=== PATIENT | female | born 1965 | race American Indian/Alaskan Native ===

== ENCOUNTER 2017-01-16 10:24 | Emergency (ER) | payer SELFPAY ==
--- NOTE | 2017-01-16 13:11 | Emergency Department Report ---
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 ambulatory) - Related Data Previous Rx's Medication Instructions Recorded Last Taken Type traMADol [Ultram] 50 mg PO Q6HR PRN #10 tablet 01/16/17 Unknown Rx Allergies Allergy/AdvReac Type Severity Reaction Status Date / Time No Known Allergies Allergy Unverified 01/16/17 10:57 ED Review of Systems ROS: Stated complaint: BACK PAIN Other details as noted in HPI Comment: Unobtainable due to pts medical conditions Constitutional: no symptoms reported, see HPI. denies: chills Eyes: as per HPI. denies: eye pain ENT: as per HPI. denies: ear pain, throat pain Respiratory: no symptoms reported, see HPI. denies: cough, orthopnea Cardiovascular: as per HPI. denies: chest pain, palpitations, dyspnea on exertion, orthopnea, edema, syncope, paroxysmal nocturnal dyspnea Endocrine: no symptoms reported, see HPI. denies: intolerance to cold, intolerance to heat Gastrointestinal: as per HPI. denies: abdominal pain, nausea, vomiting Genitourinary: as per HPI. 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 denies: back pain, joint swelling Skin: as per HPI. denies: rash, lesions Neurological: as per HPI. denies: headache, weakness Psychiatric: as per HPI. denies: anxiety, depression Hematological/Lymphatic: as per HPI. denies: easy bleeding ED Past Medical Hx - Past Medical History Hx Hypertension: Yes - Surgical History Additional Surgical History: Tubal ligation, c section, hyst. - Social History Smoking Status: Never Smoker Substance Use Type: Alcohol - Medications Home Medications: Home Medications Medication Instructions Recorded Confirmed Last Taken Type traMADol [Ultram] 50 mg PO Q6HR PRN #10 tablet 01/16/17 Unknown Rx ED Physical Exam - General Limitations: No Limitations General appearance: alert, in no apparent distress - Head Head exam: Present: atraumatic - Eye Eye exam: Present: PERRL - ENT ENT exam: Present: normal exam, mucous membranes moist - Neck Neck exam: Present: normal inspection - Respiratory Respiratory exam: Present: normal lung sounds bilaterally - Cardiovascular Cardiovascular Exam: Present: regular rate - GI/Abdominal GI/Abdominal exam: Present: soft - Rectal Rectal exam: Present: deferred - Extremities Exam Extremities exam: Present: normal inspection, full ROM, normal capillary refill. Absent: tenderness, pedal edema, joint swelling - Expanded Upper Extremity Exam Right General: Present: other Shoulder Exam: Present: normal inspection. Absent: full ROM, tenderness, swelling, abrasion, laceration, ecchymosis, deformity, crepidus, dislocation, erythema, tenderness over AC joint - Back Exam Back exam: Present: normal inspection, full ROM. 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 ED Disposition Clinical Impression: Shoulder pain, Arthritis Disposition: DC-01 TO HOME OR SELFCARE Is pt being admited?: No Does the pt Need Aspirin: No Condition: Stable Instructions: Osteoarthritis (ED), Shoulder Sprain (ED) Additional Instructions: rest warm compresses follow up ortho motrin for pain- it treats the problem Prescriptions: traMADol [Ultram] 50 mg PO Q6HR PRN #10 tablet PRN Reason: Pain Referrals: PRIMARY CARE, [Primary Care Provider] - 3-5 Days KVNG BERGER MD [Staff Physician] - 3-5 Days Forms: Work/School Release Form(ED) Time of Disposition: 14:59
[2017-01-16] MEDS ORDERED: NORCO 5/325 PO ONE (14:41)
[2017-01-16 15:42] VITALS: BP 142/88
--- NOTE | 2017-01-17 08:14 | XRay Report ---
RIGHT SHOULDER RADIOGRAPHS INDICATION: Right shoulder pain. COMPARISON: None similar at this institution. FINDINGS: Frontal and Y views of the right shoulder, 3 projections demonstrate normal humeral head contour, well positioned against the glenoid. Normal acromioclavicular joint. Preserved scapular contour. Normal visualized soft tissues, right ribs and lung. CONCLUSION: No acute right shoulder radiographic abnormality, as described. Thank you for the opportunity to participate in this patient's care.
== END 2017-01-16 15:43 | disposition home or self-care (01) ==
LOC: ED 10:24
DX: M13.811 Other specified arthritis, right shoulder (principal); M25.511 Pain in right shoulder; I10 Essential (primary) hypertension
CPT/HCPCS: 99283

== ENCOUNTER 2017-10-08 19:00 | Emergency (ER) | payer SELFPAY ==
--- NOTE | 2017-10-08 20:44 | Emergency Department Report ---
HPI - General Chief Complaint: Syncope Time Seen by Provider: 10/08/17 20:16 - HPI HPI: Room 4 The patient is a 52-year-old female presenting with a chief complaint of syncope. The patient states she was at [facility] when she began to feel hot and lightheaded and then had a syncopal episode. Friend/family that accompany the patient states patient was in and out of consciousness for approximately 20 minutes until EMS arrived. The patient states she does not recall falling at all but remembers being propped up and being attended to by [facility] staff. Friend/family states that the patient's left hand was trembling for approximately 30 minutes prior to the patient's syncopal episode. Patient does not recall this. The patient now complains of headache and neck pain. Patient denied chest pain or shortness of breath. Patient denies nausea/vomiting. Patient denies any recent flights or long car trips. The patient currently gives her pain a score of 9/10 Location: [See above] Duration: [See above] Quality: Syncope Severity: 9/10 Modifying factors: [see above] Context: [see above] Mode of transportation: [not driving] ED Past Medical Hx - Past Medical History Previous Medical History?: Yes Hx Hypertension: Yes Hx CVA: Yes (no residual weakness) - Surgical History Past Surgical History?: Yes Additional Surgical History: Bilateral tubal ligation, c section, hyst. - Family History Family history: no significant - Social History Smoking Status: Never Smoker Substance Use Type: Alcohol (sixpack of beer daily) - Medications Home Medications: Home Medications Medication Instructions Recorded Confirmed Last Taken Type traMADol [Ultram] 50 mg PO Q6HR PRN #10 tablet 01/16/17 Unknown Rx ED Review of Systems ROS: Stated complaint: SYNCOPE Other details as noted in HPI Constitutional: no symptoms reported Respiratory: denies: shortness of breath Cardiovascular: denies: chest pain Gastrointestinal: denies: nausea, vomiting Neurological: headache, other (syncope) Physical Exam - Physical Exam Vital Signs: Vital Signs 10/08/17 19:33 Temperature 98.4 F Pulse Rate 81 Respiratory 18 Rate Blood Pressure 108/75 Blood Pressure 108/75 [Left] O2 Sat by Pulse 97 Oximetry Physical Exam: GENERAL: The patient is well-developed well-nourished female lying on stretcher not appearing to be in acute distress. [] HEENT: Normocephalic. Atraumatic. Extraocular motions are intact. Patient has moist mucous membranes. NECK: Supple. No meningitic signs are noted. Trachea midline. Patient complains of pain in the mid cervical spine CHEST/LUNGS: Clear to auscultation. There is no respiratory distress noted. HEART/CARDIOVASCULAR: Regular. There is no tachycardia. There is no gallop rub or murmur. ABDOMEN: Abdomen is soft, nontender. Patient has normal bowel sounds. There is no abdominal distention. SKIN: There is no rash. There is no edema. There is no diaphoresis. NEURO: The patient is awake, alert, and oriented. The patient is cooperative. The patient has no focal neurologic deficits. The patient has normal speech. Cranial nerves II through XII grossly intact, no drift MUSCULOSKELETAL: There is no evidence of acute injury. ED Course Vital Signs 10/08/17 19:33 Temperature 98.4 F Pulse Rate 81 Respiratory 18 Rate Blood Pressure 108/75 Blood Pressure 108/75 [Left] O2 Sat by Pulse 97 Oximetry ED Medical Decision Making - Lab Data Result diagrams: 10/08/17 20:36 10/08/17 20:36 Laboratory Tests 10/08/17 10/08/17 10/08/17 20:36 20:36 20:36 WBC 5.1 RBC 3.78 Hgb 12.8 Hct 38.1 MCV 101 H MCH 34 H MCHC 34 RDW 12.8 L Plt Count 266 Lymph % (Auto) 29.3 [place] % (Auto) 8.1 H Eos % (Auto) 1.1 Baso % (Auto) 0.6 Lymph # 1.5 [place] # 0.4 Eos # 0.1 Baso # 0.0 Seg Neutrophils % 60.9 Seg Neutrophils # 3.1 PT 13.0 INR 0.94 APTT 21.5 L D-Dimer < 135.00 Sodium 143 Potassium 4.1 Chloride 101.7 Carbon Dioxide 25 Anion Gap 20 BUN 11 Creatinine 0.9 Estimated GFR > 60 BUN/Creatinine Ratio 12 Glucose 108 H Calcium 9.0 Total Creatine Kinase 107 CK-MB (CK-2) 1.4 CK-MB (CK-2) Rel Index 1.3 Troponin T Urine Color Urine Turbidity Urine pH Ur Specific Platter Urine Protein Urine Glucose (UA) Urine Ketones Urine Blood Urine Nitrite Urine Bilirubin Urine Urobilinogen Ur Leukocyte Esterase Urine WBC (Auto) Urine RBC (Auto) U Epithel Cells (Auto) Urine Bacteria (Auto) Hyaline Casts Urine Mucus Plasma/Serum Alcohol 10/08/17 10/08/17 10/08/17 20:36 21:00 21:03 WBC RBC Hgb Hct MCV MCH MCHC RDW Plt Count Lymph % (Auto) [place] % (Auto) Eos % (Auto) Baso % (Auto) Lymph # [place] # Eos # Baso # Seg Neutrophils % Seg Neutrophils # PT INR APTT D-Dimer Sodium Potassium Chloride Carbon Dioxide Anion Gap BUN Creatinine Estimated GFR BUN/Creatinine Ratio Glucose Calcium Total Creatine Kinase CK-MB (CK-2) CK-MB (CK-2) Rel Index Troponin T < 0.010 Urine Color Yellow Urine Turbidity Clear Urine pH 5.0 Ur Specific Platter 1.013 Urine Protein 100 mg/dl Urine Glucose (UA) Neg Urine Ketones Neg Urine Blood Sm Urine Nitrite Pos Urine Bilirubin Neg Urine Urobilinogen < 2.0 Ur Leukocyte Esterase Neg Urine WBC (Auto) 3.0 Urine RBC (Auto) 1.0 U Epithel Cells (Auto) < 1.0 Urine Bacteria (Auto) 4+ Hyaline Casts 10 Urine Mucus Few Plasma/Serum Alcohol 0.16 H - EKG Data -: EKG Interpreted by Me EKG shows normal: sinus rhythm Rate: normal - EKG Data When compared to previous EKG there are: previous EKG unavailable Interpretation: other (no ischemic changes seen) - Radiology Data Radiology results: report reviewed (CT head), image reviewed (CT head, CT cervical spine) CT head (read by radiologist)-no grossly acute intracranial abnormality CT cervical spine (read by radiologist)-no acute fracture or subluxation of the cervical spine. There is straightening of the normal lordotic curvature which may relate to patient positioning or muscle spasm. Mild degenerative changes. - Medical Decision Making I discussed with the patient and family at bedside and my concern for patient's presentation. I explained to her my recommendation that she be admitted to the hospital for further monitoring. He verbalized understanding of increased risk of morbidity and/or mortality should she leave the hospital AGAINST MEDICAL ADVICE. Patient still wishes to leave the hospital - Differential Diagnosis syncope Critical care attestation.: If time is entered above; I have spent that time in minutes in the direct care of this critically ill patient, excluding procedure time. ED Disposition Clinical Impression: Syncope Disposition: DC-07 LEFT AGAINST MED ADVICE Is pt being admited?: No Does the pt Need Aspirin: No Condition: Undetermined Instructions: Syncope (ED) Referrals: PRIMARY CARE, [Primary Care Provider] - 3-5 Days Forms: AMA Form Time of Disposition: 21:38 (leaving AMA)
[2017-10-08 20:58] LABS: Basophils % (Auto) 0.6 % (0.0-1.8); Eosinophils # (Auto) 0.1 K/mm3 (0.0-0.4); Eosinophils % (Auto) 1.1 % (0.0-4.3); Hematocrit 38.1 % (30.3-42.9); Hemoglobin 12.8 gm/dl (10.1-14.3); Lymphocytes # (Auto) 1.5 K/mm3 (1.2-5.4); Lymphocytes % (Auto) 29.3 % (13.4-35.0); Mean Corpuscular HGB Conc 34 % (30-34); Mean Corpuscular Hemoglobin 34 pg (28-32); Mean Corpuscular Volume 101 fl (79-97); Monocytes # (Auto) 0.4 K/mm3 (0.0-0.8); Monocytes % (Auto) 8.1 % (0.0-7.3); Platelet Count 266 K/mm3 (140-440); Red Blood Count 3.78 M/mm3 (3.65-5.03); Red Cell Distribution Width 12.8 % (13.2-15.2)
[2017-10-08 21:12] LABS: Creatine Kinase MB 1.4 ng/mL (0.0-4.0)
[2017-10-08 21:13] LABS: BUN/Creatinine Ratio 12; Blood Urea Nitrogen 11 mg/dL (7-17); Hemolysis Index 7
[2017-10-08 21:17] LABS: INR 0.94 (0.87-1.13)
[2017-10-08 21:18] LABS: Partial Thromboplastin Time 21.5 Sec. (24.2-36.6)
[2017-10-08 21:20] LABS: Bacteria,Urine 4+ /HPF (Negative); Bilirubin,Urine NEG (Negative); Blood,Urine SM (Negative); Color,Urine Yellow (Yellow); Hyaline Casts,Urine 10 /LPF; Mucus,Urine FEW /HPF; Urobilinogen,Urine < 2.0 mg/dL (<2.0)
[2017-10-08 22:40] VITALS: BP 129/85
--- NOTE | 2017-10-10 14:28 | Cat Scan Report ---
FINAL REPORT EXAM: CT HEAD/BRAIN WO CON HISTORY: syncope, headache COMPARISON: None available. TECHNIQUE: Axial images obtained skull base through vertex. FINDINGS: No acute intracranial hemorrhage, midline shift or pathologic extra axial fluid collection. Ventricles and cisterns are normal in size and configuration for the patient's age. Hall-white differentiation preserved. Calvarium grossly intact. Benign calcification bilateral basal ganglia. Ocular globes are grossly unremarkable. Mild mucosal thickening the visualized paranasal sinuses. Mastoid air cells are clear. IMPRESSION: No grossly acute intracranial abnormality.
--- NOTE | 2017-10-10 14:28 | Cat Scan Report ---
FINAL REPORT EXAM: CT CERVICAL SPINE WO CON HISTORY: syncope, neck pain COMPARISON: None available. TECHNIQUE: Axial images obtained through the cervical spine. Additional sagittal and coronal reformatted images were obtained. FINDINGS: Straightening of the normal lordotic curvature of the cervical spine. Cervical vertebral body heights are preserved. No acute fracture or traumatic subluxation. Odontoid process, articular pillars and occipital condyles are intact. Moderate loss of disc height C4-C5 and C5-C6 levels. Mild canal stenosis and foramina ring at those levels due to endplate osteophyte, uncovertebral hypertrophy mild broad-based disc bulge. 6 millimeter hypodense left thyroid lobe nodule. IMPRESSION: No acute fracture or subluxation of the cervical spine. There is straightening of the normal lordotic curvature which may relate to patient positioning or muscle spasm. Mild degenerative changes.
== END 2017-10-08 21:50 | disposition left against medical advice (07) ==
LOC: ED 19:00
DX: R55 Syncope and collapse (principal); I10 Essential (primary) hypertension
CPT/HCPCS: 36415; 70450; 72125; 80048; 81001; 82550; 82553; 84484; 85025; 85379; 85610; 85730; 93005; 93010; 99284; G0480; 80320

== ENCOUNTER 2018-07-08 13:04 | Emergency (ER) | payer OTHER ==
[2018-07-08 13:07] VITALS: BP 146/87
--- NOTE | 2018-07-08 13:08 | Emergency Department Report ---
Blank Doc - Documentation Documentation: 52 yo Patient here reports fall and twisted left ankle 2 days ago. Pain /swelling to lt ankle. denies head or neck injuruy PE: lt outer ankle with swelling and TTP 2+ pedal pulses This initial assessment diagnostic orders/clinical plan/treatment (s) is/Are subject change based on patient's health status, clinical progression and re- assessment by fellow clinical providers in the ED. Further treatment and work-up at subsequent clinical providers discetion. Patient/guardians urged not to elope from s their condition may be serious if not clinically assessed and managed. Inital order include: Xray left ankle
--- NOTE | 2018-07-08 16:10 | Emergency Department Report ---
HPI - General Chief Complaint: Extremity Injury, Lower Time Seen by Provider: 07/08/18 13:05 - HPI HPI: 52 year-old female presents to the emergency department with left ankle pain that occurred after the patient tripped over a cord and fell onto her twisted foot and ankle. Since that time she's had some swelling, discomfort, and has been unable to bear weight or ambulate. She has a past medical history of hypertension and CVA. She has not taken anything for her symptoms prior to presentation. ED Past Medical Hx - Past Medical History Hx Hypertension: Yes Hx CVA: Yes - Surgical History Additional Surgical History: Bilateral tubal ligation, c section, hyst. - Social History Smoking Status: Never Smoker Substance Use Type: None - Medications Home Medications: Home Medications Medication Instructions Recorded Confirmed Last Taken Type traMADol [Ultram] 50 mg PO Q6HR PRN #10 tablet 01/16/17 Unknown Rx oxyCODONE /ACETAMINOPHEN [Percocet 1 tab PO Q6HR PRN #12 tablet 07/08/18 U nknown Rx 5/325] ED Review of Systems ROS: Stated complaint: (L) LEG SWOLLEN/ PAIN Other details as noted in HPI Comment: All other systems reviewed and negative Constitutional: denies: chills, fever Eyes: denies: eye pain, vision change ENT: denies: ear pain, throat pain Respiratory: denies: cough, shortness of breath Cardiovascular: denies: chest pain, palpitations Gastrointestinal: denies: abdominal pain, vomiting Genitourinary: denies: dysuria, discharge Musculoskeletal: joint swelling, arthralgia Skin: denies: rash, lesions Neurological: denies: headache, weakness Physical Exam - Physical Exam Vital Signs: Vital Signs 07/08/18 13:06 Temperature 99.1 F Pulse Rate 107 H Respiratory 18 Rate Blood Pressure 146/87 O2 Sat by Pulse 98 Oximetry Physical Exam: GENERAL: The patient is well-developed well-nourished. HEENT: Normocephalic. Atraumatic. Patient has moist mucous membranes. EYES: Extraocular motions are intact. NECK: Supple. Trachea is midline. CHEST/LUNGS: Clear to auscultation. There is no respiratory distress noted. HEART/CARDIOVASCULAR: Regular. There is no tachycardia. There is no obvious murmur. ABDOMEN: There is no abdominal distention. SKIN: Skin is warm and dry. There is some mild nonpitting swelling to the circumflex left ankle that is worst on the lateral side. No erythema or skin color change. NEURO: The patient is awake, alert, and oriented. The patient is cooperative. The patient has no focal neurologic deficits. The patient has normal speech. MUSCULOSKELETAL: There is tenderness to palpation to the left lateral malleolus and ankle. Decreased range of motion of the left foot and ankle secondary to pain. Dorsalis pedis pulse +2 over 4 to the affected left foot. ED Course Vital Signs 07/08/18 13:06 Temperature 99.1 F Pulse Rate 107 H Respiratory 18 Rate Blood Pressure 146/87 O2 Sat by Pulse 98 Oximetry ED Medical Decision Making - Radiology Data Radiology results: image reviewed interpreted by me: X-ray of the left ankle shows a oblique distal left fibula fracture - Medical Decision Making Patient presents with some left ankle pain and swelling after tripping over a cord and twisting her ankle. X-ray shows a oblique distal left fibula fracture. She was placed in a sugar tong splint. She will be nonweightbearing. She is been given referrals for orthopedist. She will return to the ER with any worsening of her symptoms are any acute distress. - Differential Diagnosis ankle fracture, ankle sprain, contusion Critical Care Time: No Critical care attestation.: If time is entered above; I have spent that time in minutes in the direct care of this critically ill patient, excluding procedure time. ED Disposition Clinical Impression: Closed fracture of left distal fibula Qualifiers: Encounter type: initial encounter Fracture morphology: unspecified fracture morphology Qualified Code(s): S82.832A - Other fracture of upper and lower end of left fibula, initial encounter for closed fracture Disposition: DC-01 TO HOME OR SELFCARE Is pt being admited?: No Condition: Stable Instructions: Ankle Fracture (ED) Additional Instructions: Please follow up with an orthopedist early next week. Use the crutches and remain nonweightbearing to your left ankle and leg. You can use elevation, ice but do not get the splint wet. Remain in the splint until follow-up with the orthopedist. Return to the emergency Department with any worsening of your symptoms or any acute distress. Prescriptions: oxyCODONE /ACETAMINOPHEN [Percocet 5/325] 1 tab PO Q6HR PRN #12 tablet PRN Reason: Pain Referrals: KVNG BERGER MD [Staff Physician] - 2-[address] [facility] [Provider Group] - 2-3 Days Forms: Work/School Release Form(ED) Time of Disposition: 17:44
[2018-07-08] MEDS ORDERED: NORCO 5/325 PO ONE (16:57)
--- NOTE | 2018-07-08 18:22 | XRay Report ---
PROCEDURE: XR ANKLE 3+V LT TECHNIQUE: Left ankle radiographs, AP, lateral, and mortise views. HISTORY: fall with left ankle pain and swelling COMPARISONS: None . FINDINGS: There is a displaced short oblique fracture through the distal metadiaphysis of the fibula with assoc iated soft tissue swelling. The mortise joint appears to be maintained. IMPRESSION: 1. Displaced oblique fracture through the distal metaphysis of the left fibula with associated soft t issue swelling. This document is electronically signed by Sarah Dougherty MD., July 08 2018 02:22:40 PM ET
== END 2018-07-08 17:55 | disposition home or self-care (01) ==
LOC: ED 13:04
DX: S82.832A Other fracture of upper and lower end of left fibula, initial encounter for closed fracture (principal); I10 Essential (primary) hypertension; Z86.73 Personal history of transient ischemic attack (TIA), and cerebral infarction without residual deficits; Z98.51 Tubal ligation status; W01.0XXA Fall on same level from slipping, tripping and stumbling without subsequent striking against object, initial encounter; Y93.89 Activity, other specified; Y92.89 Other specified places as the place of occurrence of the external cause; Y99.8 Other external cause status

== ENCOUNTER 2019-02-14 07:49 | Day surgery (SDC) | payer OTHER ==
[~2019-02-14 07:49] MED LIST: SODIUM CHLORIDE 0.9% 1000 ML 1,000 ML IV SCH
--- NOTE | 2019-02-14 08:22 | Anesthesia Consultation ---
Anesthesia Consult and Med Hx Date of service: 02/14/19 - Airway Anesthetic Teeth Evaluation: Poor ROM Head & Neck: Adequate Mental/Hyoid Distance: Adequate Mallampati Class: Class II Intubation Access Assessment: Good - Pulmonary Exam CTA: Yes - Cardiac Exam Cardiac Exam: RRR - Pre-Operative Health Status ASA Pre-Surgery Classification: ASA2 Proposed Anesthetic Plan: MAC - Cardiovascular System Hx Hypertension: Yes (hctz)
--- NOTE | 2019-02-14 08:25 | Anesthesia Day of Surgery ---
Anesthesia Day of Surgery - Day of Surgery Patient Examined: Yes Patient H&P Reviewed: Yes Patient is NPO: Yes
[2019-02-14] MEDS ORDERED: PROPOFOL 200 MG/20 ML VIAL IV ONE ×2 (09:11)
--- NOTE | 2019-02-14 09:35 | Short Stay Summary ---
Short Stay Documentation Date of service: 02/14/19 Narrative H&P: patient is a 53 yo aaf who presents for screening colonoscopy. Denies gi complaints at this time. No prior screening colonoscopy. - History Past Medical History: other (no changes from clinic note) Past Surgical History: No surgical history Social history: no significant social history - Allergies and Medications Current Medications: Allergies No Known Allergies Allergy (Verified 02/13/19 14:35) Home Medications Medication Instructions Recorded Confirmed Last Taken Type Aleve 1 tab PO DAILY 02/13/19 02/13/19 Unknown History Goody's Ex-Str Powder Packet 38 - 500 mg PO PRN PRN 02/13/19 02/13/19 Unknown History Hydrochlorothiazide 25 mg PO DAILY 02/13/19 02/14/19 02/13/19 History Ibuprofen 800 mg PO DAILY 02/13/19 02/13/19 Unknown History Vitamin D2 50,000 units PO QWEEK 02/13/19 02/13/19 Unknown History amLODIPine 5 mg PO DAILY 02/13/19 02/13/19 02/12/19 History Lipitor 1 tab PO DAILY 02/14/19 02/14/19 02/13/19 History Active Medications Sodium Chloride (Nacl 0.9% 1000 Ml) 1,000 mls @ 50 mls/hr IV DIRECT BRIAN Last Admin: 02/14/19 08:40 Dose: 50 mls/hr Documented by: - Physical exam General appearance: no acute distress Heart: Regular rate, Normal S1, Normal S2 Gastrointestinal: normal - Brief post op/procedure progress note Date of procedure: 02/14/19 Pre-op diagnosis: screening for colorectal cancer Post-op diagnosis: other (small colon polyp removed) Procedure: Colonoscopy with biopsy Anesthesia: MAC Findings: descending colon polyp removed with cold biopsy forceps Surgeon: MOSES ECKERT Estimated blood loss: minimal Pathology: list (Jar A - descending colon polyp) Specimen disposition: to lab Condition: stable - Disposition Condition at discharge: Good Disposition: DC-01 TO HOME OR SELFCARE Short Stay Discharge Plan Follow up with: CHALO ADLER MD [Primary Care Provider] - 7 Days
--- NOTE | 2019-02-14 09:36 | Operative Report ---
Operative Report Operative Report: Colonoscopy Procedure Note with Biopsy Date of procedure: 02/14/2019 Endoscopist: Simon Donald Pre-op diagnosis/indication: Screening for colorectal cancer Post-op diagnosis: Small colon polyp removed MEDICATIONS: MAC COMPLICATIONS: No immediate complications ESTIMATED BLOOD LOSS: none DESCRIPTION OF PROCEDURE: After consent was obtained, the patient was placed in the left lateral decubitis position. The fujinon colonoscope was inserted into the rectum under direct vision, and advanced to the cecum. The quality of prep was good. The patient tolerated the procedure well. The patient's vital signs were monitored continuously throughout the procedure. FINDINGS: There was an ~2 mm sessile polyp in the descending colon. The polyp was removed and retrieved with cold biospy forceps. Internal hemorrhoids were visualized on retroflexion view. IMPRESSION: 1. Small colon polyp removed with cold biopsy forceps 2. Internal hemorrhoids RECOMMENDATIONS: -follow up pathology -repeat colonoscopy for surveillance in 5 years
[2019-02-14 09:59] VITALS: BP 163/98
[2019-02-14] MEDS ORDERED: LIDOCAINE MPF (2%) 20 MG/1 ML VIAL 5 ML ONE (13:45)
[2019-02-14] MEDS ORDERED: SODIUM CHLORIDE 0.9% 1000 ML 1,000 ML ONE (13:45)
--- NOTE | 2019-02-14 15:47 | Post Anesthesia Evaluation ---
- Post Anesthesia Evaluation Patient Participated: Yes Airway Patent: Yes Stable Respiratory Function: Yes Nausea/Vomiting: No Temp > 96.8F: Yes Pain Manageable: Yes Adequeate Hydration: Yes Anesthesia Complications: No Block Receding Appropriately: Not Applicable Patient on Ventilator: No
== END 2019-02-14 10:15 | disposition home or self-care (01) ==
LOC: GIO 07:49
PROVIDERS: ATTEND Internal Medicine Gastroenterology
DX: Z12.11 Encounter for screening for malignant neoplasm of colon (principal); D12.4 Benign neoplasm of descending colon; K64.8 Other hemorrhoids; I10 Essential (primary) hypertension; F17.210 Nicotine dependence, cigarettes, uncomplicated; Z90.710 Acquired absence of both cervix and uterus; Z98.891 History of uterine scar from previous surgery; Z98.51 Tubal ligation status; Z98.890 Other specified postprocedural states; Z79.899 Other long term (current) drug therapy
CPT/HCPCS: 45380; 88305; J2704; J7030